=== PATIENT | male | born 1950 | race Caucasian/White ===

== ENCOUNTER → 2019-01-06 | Outpatient (CLI) | payer BC, MEDICARE ==
[~2019-01-06] MED LIST: REGADENOSON 0.4 MG/5 ML DISP.SYRIN. IV ONE
--- NOTE | 2019-01-09 13:55 | PCVCIMAG ---
APPROVED REPORT Imaging Protocol: Rest Tc-99m/Stress Tc-99m 1 day Study performed: 01/06/2019 11:02:03 Indication: CAD , Chest pain Patient Location: Out-Patient Stress Nurse: Mona Pan RN, Jessica Alcaraz RN ID Tech:[facility] Ht: 6 ft 3 in Wt: 260 lbs BSA: 2.45 m2 HR: 51 bpm BP: 143/75 mmHg BMI: 32.4 Rhythm: Sinus Bradycardia Medical History Medical History: HTN, Hyperlipidemia, CVD, Former Smoker Medications: ASA, Bystolic, Benicar-HCT Allergies: No known drug allergies Cardiac Risk Factors: Age Previous Cardiac Procedures: 2007 PCI, 2018 STEMI Pretest Chest Pain Characteristics: No chest pain Exercise History: Indeterminate Physical Disabilities: Achilles Meds Held (24 hrs): Bystolic Resting Data Rest SPECT myocardial perfusion imaging was performed in supine position 45 minutes following the intravenous injection of 10.1 mCi of Tc-99m Sestamibi. Time of rest injection: 1015 Date: 01/06/2019 Administration Route: IV Administration Site: Right AC Pharmacologic Stress Pharmacologic stress test was performed by injecting Regadenoson 0.4 mg IV push over 10-15 seconds immediately followed by the intravenous injection of 33.3 mCi of Tc-99m Sestamibi. Time of stress injection: 1140 Date: 01/06/2019 Administration Route: IV Administration Site: Right AC Gated Stress SPECT was performed 45 minutes after stress injection. The images were gated to evaluate regional wall motion and calculate left ventricular ejection fraction. Stress Test Details Stress Test: Pharmacologic stress testing performed using 0.4 mg of regadenoson per 5 mL given IV over 10 seconds. Reason for pharmacologic stress test: achilles injury. HRMax Heart Rate (APMHR): 154 bpm Resting HR: 54 bpmTarget HR (85% APMHR): 130 bpm Max HR Achieved: 78 bpm % of APMHR: 50 Recovery HR: 63 bpm BP Resting BP: 143/75 mmHg Max BP: 129/60 mmHg Recovery BP: 126/58 mmHg ECG Resting ECG: Sinus Bradycardia Stress ECG: Sinus Rhythm Recovery ECG: Sinus Rhythm Clinical Reason for Termination: Completed protocol Stress Symptoms: Chest tightness Exercise duration: 0 min 55 sec Symptoms resolved during recovery. Stress ECG Conclusion ECG: Non-ischemic Study Quality Study: Good Study Data Post stress, the left ventricular ejection was 66%.. SSS: 6 SRS: 4 SDS: 2 TID = 1.10. Perfusion No evidence of stress induced ischemia or prior myocardial infarction. Wall Motion Normal left ventricular size and function with no regional wall motion abnormalities. Nuclear Conclusion No evidence of stress induced ischemia or prior myocardial infarction. Normal left ventricular size and function with no regional wall motion abnormalities. Post stress, the left ventricular ejection was 66%. No change since prior study dated August 2016. Interpreted by: Mekhi Horan MD Electronically Approved: 01/06/2019 15:34:38 <Conclusion> ECG: Non-ischemic
== END | disposition home or self-care (01) ==
LOC: PCVCIMAG 09:54
PROVIDERS: ATTEND Internal Medicine Cardiovascular Disease
DX: I25.118 Atherosclerotic heart disease of native coronary artery with other forms of angina pectoris (principal); R07.9 Chest pain, unspecified
CPT/HCPCS: 78452; 93017; A9500; J2785

== ENCOUNTER → 2019-03-07 | Outpatient (CLI) | payer BC, MEDICARE | END | disposition home or self-care (01) | LOC: PCVCCLINIC 14:50 | PROVIDERS: ATTEND Internal Medicine Cardiovascular Disease | DX: I25.10 Atherosclerotic heart disease of native coronary artery without angina pectoris (principal); E78.00 Pure hypercholesterolemia, unspecified; I10 Essential (primary) hypertension; I65.23 Occlusion and stenosis of bilateral carotid arteries; I25.5 Ischemic cardiomyopathy; Z79.82 Long term (current) use of aspirin; Z87.891 Personal history of nicotine dependence | CPT/HCPCS: 36415; 80061; 93005; G0463 ==

== ENCOUNTER → 2019-06-09 | Outpatient (CLI) | payer BC, MEDICARE ==
--- NOTE | 2019-06-09 13:45 | PCVCIMAG ---
APPROVED REPORT Study performed: 06/09/2019 10:51:26 EXAM: Limited 2D and color flow Echocardiogram Patient Location: Echo lab Status: routine BSA: 2.49 HR: 54 bpmBP: 126/76 mmHg Rhythm: NSR Indications CAD ischemic cardiomyopathy 2D Dimensions IVSd: 11.59 (7-11mm) LVDd: 47.06 mm PWd: 10.53 (7-11mm) LVDs: 30.76 (25-40mm) Left Atrium: 38.92 (27-40mm) Aortic Root: 35.18 mm LV Single Plane 4CH: 56.77 % LV Single Plane 2CH: 52.53 % Biplane EF: 55.7 % Left Ventricle The left ventricle is normal size. There is normal LV segmental wall motion. Borderline concentric left ventricular hypertrophy. Left ventricular systolic function is within lower limits of normal. LVEF is 50-55%. This study is not technically sufficient to allow evaluation of the LV diastolic function. Right Ventricle The right ventricle is normal size. The right ventricular systolic function is normal. Atria Left atrium is mildly dilated. Right atrium is mildly dilated. Aortic Valve The aortic valve is normal in structure. No aortic regurgitation is present. There is no aortic valvular stenosis. Mitral Valve The mitral valve is normal in structure. There is no mitral valve regurgitation noted. No evidence of mitral valve stenosis. Tricuspid Valve The tricuspid valve is normal in structure. There is no tricuspid valve regurgitation noted. Pulmonic Valve The pulmonary valve is normal in structure. There is no pulmonic valvular regurgitation. Great Vessels The aortic root is normal in size. IVC is normal in size and collapses >50% with inspiration. Pericardium There is no pericardial effusion. There is no pleural effusion. <Conclusion> The left ventricle is normal size. Borderline concentric left ventricular hypertrophy. Borderline concentric left ventricular hypertrophy. LVEF is 50-55%. This study is not technically sufficient to allow evaluation of the LV diastolic function. Left atrium is mildly dilated. Right atrium is mildly dilated. The aortic valve is normal in structure. There is no mitral valve regurgitation noted. There is no tricuspid valve regurgitation noted. The aortic root is normal in size. There is no pericardial effusion.
== END | disposition home or self-care (01) ==
LOC: PCVCIMAG 10:47
PROVIDERS: ATTEND Internal Medicine Cardiovascular Disease
DX: I25.10 Atherosclerotic heart disease of native coronary artery without angina pectoris (principal); I25.5 Ischemic cardiomyopathy
CPT/HCPCS: 93308

== ENCOUNTER → 2019-08-08 | Outpatient (CLI) | payer BC, MEDICARE | END | disposition home or self-care (01) | LOC: PCVCCLINIC 11:00 | PROVIDERS: ATTEND Internal Medicine Cardiovascular Disease | DX: I25.10 Atherosclerotic heart disease of native coronary artery without angina pectoris (principal); E78.00 Pure hypercholesterolemia, unspecified; I21.3 ST elevation (STEMI) myocardial infarction of unspecified site; I65.23 Occlusion and stenosis of bilateral carotid arteries; I25.5 Ischemic cardiomyopathy; Z79.82 Long term (current) use of aspirin; Z87.891 Personal history of nicotine dependence | CPT/HCPCS: 36415; 80061; 93005; G0463 ==

== ENCOUNTER → 2019-11-06 | Outpatient (CLI) | payer BC, MEDICARE ==
--- NOTE | 2019-11-06 08:55 | PCVCIMAG ---
APPROVED REPORT Laterality: Bilateral Indications Stenosis Doppler Spectral Velocity Analysis PSV / EDVPSV / EDV ECA (R) 106 / 17 cm/sECA (L) 93 / 24 cm/s dICA (R) 48 / 21 cm/sdICA (L) 46 / 21 cm/s Za (R) 74 / 22 cm/smICA (L) 73 / 32 cm/s pICA (R) 65 / 24 cm/spICA (L) 48 / 20 cm/s Bulb (R) 52 / 24 cm/sBulb (L) 58 / 19 cm/s dCCA (R) 54 / 16 cm/sdCCA (L) 71 / 21 cm/s mCCA (R) 65 / 22 cm/smCCA (L) 84 / 26 cm/s Vert (R) 37 / 11 cm/sVert (L) 33 / 13 cm/s ICA/CCA 1.37 ICA/CCA 1.03 Findings The right carotid bulb has mild calcified plaque. The right proximal internal carotid artery shows <40% stenosis. The right common carotid artery shows no significant stenosis. The right external carotid artery shows no significant stenosis. The left carotid bulb has minimal plaque. The left proximal internal carotid artery shows no significant stenosis. The left common carotid artery shows no significant stenosis. The left external carotid artery shows no significant stenosis. Conclusion 1. Right internal carotid artery stenosis (<40%) 2. Left internal carotid artery plaquing without significant stenosis 3. Antegrade vertebral flow
--- NOTE | 2019-11-07 09:39 | PCVCIMAG ---
APPROVED REPORT Study performed: 11/06/2019 09:13:56 Exam: Stress Echocardiogram Indication: CAD s/p NC, CAD s/p PCI, htn, hlp Patient Location: Echo lab Stress Nurse: Jessica Alcaraz RN Status: routine Ht: 6 ft 3 in HR: 62 bpm BP: 126/80 mmHg Rhythm: NSR Procedure The patient underwent an Exercise Stress Test using the Marlon Protocol. Blood pressure, heart rate, and EKG were monitored. An Echocardiogram was performed by automotive technician instructor in four stages in quad fashion. At peak stress, four selected images were obtained and placed side by side with resting images for comparison. Stress Test Details Stress Test: Exercise stress testing was performed using a Marlon protocol. HR Resting HR: 57 bpmMax Heart Rate (APMHR): 153 bpm Max HR Achieved: 115 bpmTarget HR (85% APMHR): 130 bpm % of APMHR: 75 Recovery HR: 71 bpm HR response to stress: Normal HR response to stress BP Resting BP: 126/80 mmHg Max BP: 174/72 mmHg Recovery BP: 160/82 mmHg BP response to stress: Normal blood pressure response to stress. ECG Resting ECG: Sinus Rhythm Stress ECG: Sinus Rhythm ST Change: Normal Maximum ST Deviation: 0 mm Arrhythmia: frequent PVCs Recovery ECG: Sinus Rhythm Recovery ST Change: Normal Recovery ST Deviation: 0 mm Recovery Arrhythmia: frequent PVCs Clinical Reason for Termination: Maximal effort Stress Symptoms: Dyspnea, leg fatigue, back pain Exercise duration: 5 min sec Highest Stage Achieved: Stage 2: 2.5 mph at 12% grade. Exercise capacity: 7 METs Overall Exercise Capacity for Age: Poor Scale: Active Angina Score: None Stress ECG Conclusion Clinical: Non-ischemic ECG: Non-ischemic Webb Treadmill Score is 5.0 which is Low risk. Pre-Stress Echo The resting Echocardiogram showed normal left ventricular contractility with an estimated Ejection Fraction of about 50-55%. Post-Stress Echo The stress Echocardiogram showed normal left ventricular contractility with an estimated Ejection Fraction of about 60-65%. Conclusion Clinical Response: Non-ischemic Exercise Capacity: Below Average Stress ECG Response: Non-ischemic Stress Echo Images: Non-ischemic Non-diagnostic study due to inability of the patient to achieve 85% of maximal HR. The left ventricle is normal in size and wall thickness in both the rest and stress images. Normal color doppler. No stenosis or regurgitation seen in the mitral, aortic,tricuspid or pulmonic valves. Normal stress echocardiogram with submaximal exercise stress. Other Information Study Quality: Adequate <Conclusion> Non-diagnostic study due to inability of the patient to achieve 85% of maximal HR. The left ventricle is normal in size and wall thickness in both the rest and stress images. Normal color doppler. No stenosis or regurgitation seen in the mitral, aortic,tricuspid or pulmonic valves. Normal stress echocardiogram with submaximal exercise stress.
== END | disposition home or self-care (01) ==
LOC: PCVCIMAG 08:07
PROVIDERS: ATTEND Internal Medicine Cardiovascular Disease
DX: I65.23 Occlusion and stenosis of bilateral carotid arteries (principal); E78.5 Hyperlipidemia, unspecified; I25.5 Ischemic cardiomyopathy; I25.10 Atherosclerotic heart disease of native coronary artery without angina pectoris; I10 Essential (primary) hypertension; I25.2 Old myocardial infarction
CPT/HCPCS: 93325; 93351; 93880